=== PATIENT | male | born 1970 | race Two or more races ===

== ENCOUNTER 2021-07-10 17:50 | Emergency (ER) | payer OTHER ==
[~2021-07-10] VITALS: Ht 165.1 cm; Wt 77.1 kg
[2021-07-10] MEDS ORDERED: COZAAR50 MG PO (20:18)
== END 2021-07-10 20:25 | disposition home or self-care (01) ==
LOC: ER 17:50
DX: I16.9 Hypertensive crisis, unspecified (principal); I10 Essential (primary) hypertension